=== PATIENT | female | born 1990 | race African-American/Black ===

== ENCOUNTER 2016-10-16 17:05 | Emergency (ER) | payer MEDICAID, OTHER ==
[~2016-10-16] VITALS: Ht 172.7 cm; Wt 128.0 kg
[~2016-10-16 17:05] MED LIST: MICRONOR; OXYC-360 PO; PREN0.01 PO; SENN1TAB11 PO; [UNRECOGNIZED DRUG - CODE] OR
[2016-10-16 17:07] VITALS: BP 139/89; PULSE 104; RESP 24; TEMP 98.2; O2SAT 99
--- NOTE | 2016-10-16 19:16 | PD ---
HPI Chief Complaint: Cold / Flu Symptoms Time Seen by Provider: 19:05 Travel History International Travel<30 days: No Contact w/Intl Traveler<30days: No Traveled to known affect area: No History of Present Illness HPI 26-year-old Female with no significant past medical history presents for evaluation. Since yesterday she has had sore throat, cough, congestion, body aches. She has not checked her temperature. It hurts to swallow. She reports that her son has been sick with upper respiratory symptoms as well. Denies rash or recent travel. She has been using [id number] [place] and NSAIDs for symptom relief. She has no other complaints at this time. [facility] Past Medical History Medical History: Denies Significant Hx Tetanus Vaccination: > 5 Years ?: Not Past Surgical History Surgical History: No Previous Surgery Social History Alcohol Use: No Tobacco Use: No Substance Use: No Allergies-Medications (Allergen,Severity, Reaction): Coded Allergies: Penicillin (Verified Allergy, Severe, 10/16/16) Reported Meds & Prescriptions Reported Meds & Active Scripts Active Clindamycin (Clindamycin HCl) 300 Mg Cap 300 Mg PO TID 10 Days Review of Systems Except as stated in HPI: all other systems reviewed are Neg Physical Exam Narrative GENERAL: Well-developed well-nourished female in no acute distress SKIN: Warm and dry. HEAD: Atraumatic. Normocephalic. EYES: Pupils equal and round. No scleral icterus. No injection or drainage. ENT: No nasal bleeding or discharge. Mucous membranes pink and moist. There is oropharyngeal erythema and exudate. Uvula midline with no mass effect. NECK: Trachea midline. No JVD. Anterior cervical lymphadenopathy is present. CARDIOVASCULAR: Regular rate and rhythm. No murmur appreciated. RESPIRATORY: No accessory muscle use. Clear to auscultation. Breath sounds equal bilaterally. NEUROLOGICAL: Awake and alert. No obvious cranial nerve deficits. Motor grossly within normal limits. Normal speech. Neck supple with no meningismus Data Data Last Documented VS Vital Signs Date Time Temp Pulse Resp B/P Pulse Ox O2 Delivery O2 Flow Rate FiO2 10/16/16 17:07 98.2 104 24 139/89 99 Room Air Orders Group A Rapid Strep Screen (10/16/16 19:13) Strep Culture (Group A) (10/16/16 19:15) Clindamycin (Cleocin) (10/16/16 20:30) [facility] Medical Decision Making Medical Screen Exam Complete: Yes Emergency Medical Condition: Yes Medical Record Reviewed: Yes Differential Diagnosis Exudative pharyngitis, tonsillitis, peritonsillar abscess, infectious mononucleosis, influenza, retropharyngeal abscess, bronchitis Narrative Course 26-year-old female sore throat, cough, congestion and myalgias. Examination reveals exudative pharyngitis. Her lungs sound clear. Plan is for rapid strep screen. Rapid strep screen is negative however her examination of exudative changes in the oropharynx anterior cervical lymphadenopathy is certainly suggestive of streptococcal pharyngitis. She is allergic to penicillin and therefore she will be discharged with clindamycin. Discussed signs and symptoms that would warrant returning to the emergency room. She is stable for discharge. Diagnosis Primary Impression: Exudative pharyngitis Departure Forms: Tests/Procedures, Work Release Enter return to work date: Oct 18, 2016 Additional Instructions: Medication as prescribed. Stay well hydrated well-nourished. Take Tylenol or Motrin for fever and body ache. Return for any new or worsening symptoms. Med/Other Pt SpecificInfo: Prescription(s) given Scripts Clindamycin 300 Mg Tvd047 Mg PO TID 10 Days Ref 0 Prov:Rajesh Wolf MD 10/16/16 Disposition: 01 DISCHARGE HOME Condition: Stable Richie Patricia Oct 16, 2016 19:16
[2016-10-16] MEDS ORDERED: CLIN1CAP6 PO (20:17)
[2016-10-16] MEDS ORDERED: CLINDAMYCIN 150 MG CAP PO ONE (20:30)
== END 2016-10-16 20:42 | disposition home or self-care (01) ==
LOC: NETRI 17:05
DX: J02.9 Acute pharyngitis, unspecified (principal)
CPT/HCPCS: 87081; 87880; 99283

== ENCOUNTER 2016-10-19 19:07 | Emergency (ER) | payer OTHER ==
[~2016-10-19 19:07] MED LIST changes: +CLIN1CAP6 PO; -MICRONOR; -OXYC-360 PO; -PREN0.01 PO; -SENN1TAB11 PO; -[UNRECOGNIZED DRUG - CODE] OR
[2016-10-19 19:12] VITALS: BP 131/98; PULSE 88; RESP 16; TEMP 98.5; O2SAT 98
== END 2016-10-19 19:20 | disposition left against medical advice (07) ==
LOC: NED 19:07
DX: Z03.89 Encounter for observation for other suspected diseases and conditions ruled out (principal)
CPT/HCPCS: 99281